=== PATIENT | male | born 1970 | race African-American/Black ===

== ENCOUNTER → 2017-07-07 | Outpatient (CLI) | payer OTHER ==
[~2017-07-07] MED LIST: BAYER ASPIRIN325 M1 PO; NORVASC10 MG PO; PERCOCET 10/3251 TAB PO; SENNA S TABLET1 TAB PO; VOLTAREN75 MG PO
--- NOTE | ~2017-07-07 | XA30 ---
[facility] RADIOLOGY TEXT RESULTS PATIENT: YANG SINGER LOCATION: [facility] : 68 UNIT #: [id number] AGE: [address]: Rusty Malcolm MD SEX: M ORDER DR: [id number] [facility]. [place], [place] [address] [id number] MR#: [id number] Acc #: [id number] NAME: YANG SINGER : 1970 SEX: M STUDY DATE/TIME: 07/07/2017 14:23 UNIT: [facility] ROOM: STUDY DESCRIPTION: XA Arthrocentesis Major Joint Attending Physician: Rusty Malcolm M.D. Referring Physician: Rusty Malcolm M.D. Ordering Physician: Rusty Malcolm M.D. Primary Care Physician: Radha Galvin M.D. MEDICAL IMAGING REPORT This report is preliminary unless electronic signature is present PROCEDURE Fluoroscopically guided left hip joint injection with steroid and local anesthetic INDICATION Left hip pain and osteoarthritis. FLUOROSCOPY TIME 0.3 minutes. Reference air kerma is 12 mGy. TECHNIQUE The risks, benefits and alternatives of the procedure were discussed with the patient. Informed consent was obtained. In the procedure room, a time-out was performed confirming correct patient and procedure. All elements of maximum sterile-barrier technique utilized according to guidelines appropriate for the procedure. FINDINGS The skin overlying the left hip was prepped and draped in the usual sterile fashion. 1% lidocaine utilized to anesthetize the skin and underlying subcutaneous tissues. Next under fluoroscopic guidance a 22-gauge needle was advanced into the left hip joint space. A small amount of contrast injected confirming satisfactory positioning. Next, 2 mL of 40 mg/mL Depo-Medrol followed by 3 mL of bupivacaine was injected into the hip joint space. Needle was removed and a sterile dressing was applied. No immediate complications. Pre-procedure pain 4. Postprocedure pain 0. IMPRESSION Technically successful fluoroscopically guided hip joint injection with steroid and local anesthetic. [facility] RADIOLOGY TEXT RESULTS PATIENT: YANG SINGER LOCATION: [facility] : 68 UNIT #: [id number] AGE: [address]: Rusty Malcolm MD SEX: M ORDER DR: Dictated by... Benito Taylor M.D. THIS IS AN ELECTRONICALLY VERIFIED REPORT Benito Taylor M.D. at 07/08/2017 5:31 PM Carlos TD: 07/08/2017 07:53 JOB #: [id number] MEDICAL IMAGING REPORT Page 1 of 1 COPY
== END | disposition home or self-care (01) ==
LOC: CIVR 14:00
PROC: 3E0U33Z Introduction of Anti-inflammatory into Joints, Percutaneous Approach (ICD-10-PCS; principal; 2017-07-07)
DX: M16.12 Unilateral primary osteoarthritis, left hip (principal)
CPT/HCPCS: 77002; J1030; Q9967